=== PATIENT | female | born 1975 | race American Indian/Alaskan Native ===

== ENCOUNTER 2019-10-05 12:13 | Emergency (ER) | payer SELFPAY ==
[2019-10-05 13:03] VITALS: BP 115/68
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
== END 2019-10-05 15:01 | disposition home or self-care (01) ==
LOC: ED 12:13
DX: M79.10 Myalgia, unspecified site (principal); V49.69XA Unspecified car occupant injured in collision with other motor vehicles in traffic accident, initial encounter; Y93.89 Activity, other specified; Y92.488 Other paved roadways as the place of occurrence of the external cause; Y99.8 Other external cause status
CPT/HCPCS: 99282

== ENCOUNTER 2020-10-01 21:45 | Emergency (ER) | payer SELFPAY | END 2020-10-02 02:41 | disposition left against medical advice (07) | LOC: ED 21:45 ==

== ENCOUNTER 2020-12-15 08:43 | Emergency (ER) | payer SELFPAY ==
--- NOTE | 2020-12-15 10:50 | Emergency Department Report ---
ED General Adult HPI - General Chief complaint: Upper Respiratory Infection Stated complaint: COUGH/HEAD PAIN Time Seen by Provider: 12/15/20 10:18 Source: patient Mode of arrival: Ambulatory Limitations: No Limitations - History of Present Illness Initial comments: 5-year-old -[place] female patient presents with complaints of congestion, facial pain and pressure, and cough with green mucus production x1 week. She states that she was seen in urgent care and received an inhaler for wheezing. She has history of asthma and recurrent sinusitis. She denies any fever/chills/sweats, shortness of breath, chest pain, or loss of taste or smell. She states she did have a negative Covid test performed a few days ago. -: Sudden - Related Data Previous Rx's Medication Instructions Recorded Last Taken Type Amoxicillin/Potassium Clav 1 each PO BID 10 Days #20 tablet 12/15/20 Unknown Rx [Augmentin 875-125 Tablet] Benzonatate 200 mg PO TID PRN #30 capsule 12/15/20 Unknown Rx Levocetirizine Dihydrochloride 5 mg PO QHS #10 tab 12/15/20 Unknown Rx [Xyzal] Prednisone [predniSONE 10 mg 10 mg PO .TAPER #1 tab.ds.pk 12/15/20 Unknown Rx (6-Day Pack, 21 Tabs)] Allergies Allergy/AdvReac Type Severity Reaction Status Date / Time No Known Allergies Allergy Verified 12/15/20 09:30 ED Review of Systems ROS: Stated complaint: COUGH/HEAD PAIN Other details as noted in HPI Constitutional: denies: chills, diaphoresis, fever, malaise, weakness ENT: congestion. denies: throat pain Respiratory: cough. denies: shortness of breath Cardiovascular: denies: chest pain Gastrointestinal: denies: nausea, vomiting Neurological: denies: headache Hematological/Lymphatic: denies: swollen glands ED Past Medical Hx - Surgical History Additional Surgical History: Ortho surgery to neck - Social History Smoking Status: Never Smoker Substance Use Type: None - Medications Home Medications: Home Medications Medication Instructions Recorded Confirmed Last Taken Type Amoxicillin/Potassium Clav 1 each PO BID 10 Days #20 tablet 12/15/20 Unknown Rx [Augmentin 875-125 Tablet] Benzonatate 200 mg PO TID PRN #30 capsule 12/15/20 Unknown Rx Levocetirizine Dihydrochloride 5 mg PO QHS #10 tab 12/15/20 Unknown Rx [Xyzal] Prednisone [predniSONE 10 mg 10 mg PO .TAPER #1 tab.ds.pk 12/15/20 Unknown Rx (6-Day Pack, 21 Tabs)] ED Physical Exam - General Limitations: No Limitations General appearance: alert, in no apparent distress - Head Head exam: Present: atraumatic, normocephalic - Eye Eye exam: Present: normal appearance - ENT ENT exam: Present: other (Tenderness to palpation noted to frontal sinuses and bilateral maxillary sinuses) - Neck Neck exam: Present: normal inspection. Absent: lymphadenopathy - Respiratory Respiratory exam: Present: normal lung sounds bilaterally. Absent: respiratory distress - Cardiovascular Cardiovascular Exam: Present: regular rate, normal rhythm - Neurological Exam Neurological exam: Present: alert, oriented X3 - Psychiatric Psychiatric exam: Present: normal affect, normal mood - Skin Skin exam: Present: warm, dry, intact, normal color. Absent: rash ED Course Vital Signs 12/15/20 09:28 Temperature 98.7 F Pulse Rate 60 Respiratory 18 Rate Blood Pressure 124/60 [Right] O2 Sat by Pulse 99 Oximetry ED Medical Decision Making - Radiology Data Radiology results: report reviewed XR chest routine 2V INDICATION / CLINICAL INFORMATION: cough, SOB. COMPARISON: None available. FINDINGS: SUPPORT DEVICES: None. HEART /PULMONARY VASCULATURE: No significant abnormality. LUNGS / PLEURA: No significant pulmonary or pleural abnormality. No pneumothorax. ADDITIONAL FINDINGS: No significant additional findings. IMPRESSION: 1. No acute findings. - Medical Decision Making 5-year-old -[place] female patient presents with complaints of congestion, facial pain and pressure, and cough with green mucus production x1 week. She states that she was seen in urgent care and received an inhaler for wheezing. She has history of asthma and recurrent sinusitis. She denies any fever/chills/sweats, shortness of breath, chest pain, or loss of taste or smell. She states she did have a negative Covid test performed a few days ago. Lungs are clear to auscultation bilaterally on exam. Chest x-ray is normal. Her vitals are within normal limits. Will treat for acute bacterial sinusitis with Augmentin and prednisone. Recommend follow-up with primary care doctor in 3 to 5 days. Discussed in detail signs and symptoms that should prompt immediate return to the emergency department with patient who verbalizes understanding. She is well-appearing and stable for discharge home. Critical care attestation.: If time is entered above; I have spent that time in minutes in the direct care of this critically ill patient, excluding procedure time. ED Disposition Clinical Impression: Acute bacterial sinusitis Disposition: HOME / SELF CARE / HOMELESS Is pt being admited?: No Condition: Stable Instructions: Sinusitis, Adult, [id number] Prescriptions: Levocetirizine Dihydrochloride [Xyzal] 5 mg PO QHS #10 tab Amoxicillin/Potassium Clav [Augmentin 875-125 Tablet] 1 each PO BID 10 Days #20 tablet Benzonatate 200 mg PO TID PRN #30 capsule PRN Reason: Cough Prednisone [predniSONE 10 mg (6-Day Pack, 21 Tabs)] 10 mg PO .TAPER #1 tab.ds.pk Referrals: PRIMARY CARE, [Referring] - 3-5 Days [facility] [Provider Group] - 3-5 Days Forms: Work/School Release Form(ED)
--- NOTE | 2020-12-15 11:25 | XRay Report ---
XR chest routine 2V INDICATION / CLINICAL INFORMATION: cough, SOB. COMPARISON: None available. FINDINGS: SUPPORT DEVICES: None. HEART /PULMONARY VASCULATURE: No significant abnormality. LUNGS / PLEURA: No significant pulmonary or pleural abnormality. No pneumothorax. ADDITIONAL FINDINGS: No significant additional findings. IMPRESSION: 1. No acute findings. Signer Name: Jesse Muro MD Signed: 12/15/2020 11:20 AM Workstation Name: [id number]
[2020-12-15 13:12] VITALS: BP 134/68
== END 2020-12-15 14:00 | disposition home or self-care (01) ==
LOC: ED 08:43
DX: J01.90 Acute sinusitis, unspecified (principal); B96.89 Other specified bacterial agents as the cause of diseases classified elsewhere; Z79.899 Other long term (current) drug therapy
CPT/HCPCS: 71046